=== PATIENT | female | born 2000 | race African-American/Black ===

== ENCOUNTER 2022-05-24 00:08 | Emergency (ER) | payer BC ==
[~2022-05-24] VITALS: Ht 180.3 cm; Wt 69.0 kg
[2022-05-24 00:13] VITALS: BP 117/84
== END 2022-05-24 05:11 | disposition left against medical advice (07) ==
LOC: ER 00:08 → EDSEX 00:08 → ER 05:11
DX: Z53.21 Procedure and treatment not carried out due to patient leaving prior to being seen by health care provider (principal)